=== PATIENT | male | born 1980 | race American Indian/Alaskan Native ===

== ENCOUNTER 2017-07-08 04:22 | Emergency (ER) | payer SELFPAY | END 2017-07-08 05:30 | disposition left against medical advice (07) | LOC: ED 04:22 | DX: Z04.1 Encounter for examination and observation following transport accident (principal); Z53.21 Procedure and treatment not carried out due to patient leaving prior to being seen by health care provider; V89.2XXA Person injured in unspecified motor-vehicle accident, traffic, initial encounter; Y93.89 Activity, other specified; Y99.8 Other external cause status; Y92.410 Unspecified street and highway as the place of occurrence of the external cause ==

== ENCOUNTER 2017-11-12 13:33 | Emergency (ER) | payer SELFPAY ==
[2017-11-12] MEDS ORDERED: MOTRIN PO ONE (19:42)
--- NOTE | 2017-11-12 19:46 | Emergency Department Report ---
ED ENT HPI - General Chief complaint: Earache Stated complaint: EAR ACHE Time Seen by Provider: 11/12/17 19:41 Source: patient Mode of arrival: Ambulatory Limitations: No Limitations - History of Present Illness Initial comments: 37-year-old -Citizen Of [place] male presents to the emergency room for right ear pain and feels like is full of fluid. Patient states he did the Candle wax in these ear wax removal. States that the pain has been going on for 3 days. Patient has not taken any [id number] pain medications such as Tylenol, Advil or Aleve. Patient reports no known drug allergies currently takes no medications on a daily basis and has no past medical history. MD complaint: ear pain -: days(s) (3) Location: R ear Severity: severe Quality: stabbing, sharp Consistency: constant Improves with: none Worsens with: swallowing, eating, movement - Related Data Previous Rx's Medication Instructions Recorded Last Taken Type Ibuprofen [Motrin 600 MG tab] 600 mg PO Q8H #30 tablet 11/12/17 Unknown Rx Allergies Allergy/AdvReac Type Severity Reaction Status Date / Time No Known Allergies Allergy Unverified 11/12/17 14:07 ED Dental HPI - General Chief complaint: Earache Stated complaint: EAR ACHE Time Seen by Provider: 11/12/17 19:41 Source: patient Mode of arrival: Ambulatory Limitations: No Limitations - Related Data Previous Rx's Medication Instructions Recorded Last Taken Type Ibuprofen [Motrin 600 MG tab] 600 mg PO Q8H #30 tablet 11/12/17 Unknown Rx Allergies Allergy/AdvReac Type Severity Reaction Status Date / Time No Known Allergies Allergy Unverified 11/12/17 14:07 ED Review of Systems ROS: Stated complaint: EAR ACHE Other details as noted in HPI Comment: All other systems reviewed and negative Constitutional: denies: chills, fever ENT: ear pain ED Past Medical Hx - Past Medical History Previous Medical History?: No - Surgical History Past Surgical History?: No - Social History Smoking Status: Current Every Day Smoker Substance Use Type: Alcohol, Cocaine - Medications Home Medications: Home Medications Medication Instructions Recorded Confirmed Last Taken Type Ibuprofen [Motrin 600 MG tab] 600 mg PO Q8H #30 tablet 11/12/17 Unknown Rx ED Physical Exam - General Limitations: No Limitations General appearance: alert, in no apparent distress - Head Head exam: Present: atraumatic, normocephalic - Eye Eye exam: Present: EOMI - ENT ENT exam: Present: mucous membranes moist - Expanded ENT Exam Expanded TM/Canal exam: Erythema: Right TM, Canal Discharge: Right TM, Canal Tenderness: Right TM (right ear canal is erythematous, edematous with tragus tenderness) - Respiratory Respiratory exam: Present: normal lung sounds bilaterally. Absent: respiratory distress - Cardiovascular Cardiovascular Exam: Present: regular rate, normal rhythm. Absent: systolic murmur, diastolic murmur, rubs, gallop - Neurological Exam Neurological exam: Present: alert, oriented X3 - Psychiatric Psychiatric exam: Present: normal affect, normal mood - Skin Skin exam: Present: warm, dry, intact, normal color. Absent: rash ED Course Vital Signs 11/12/17 14:01 Temperature 98.7 F Pulse Rate 66 Respiratory 18 Rate Blood Pressure 129/88 O2 Sat by Pulse 99 Oximetry ED Medical Decision Making - Medical Decision Making Patient has been evaluated by this provider fast track. Ibuprofen 600 mg given for pain management Order polymycin ear drops and will place an ear wick. We'll discharge patient with polymycin ear drops and ear wick to be removed in 4 days. Discussed the patient is symptoms persist or gets worse to follow-up with ear nose and throat doctor. He verbalized understanding. Critical care attestation.: If time is entered above; I have spent that time in minutes in the direct care of this critically ill patient, excluding procedure time. ED Disposition Clinical Impression: Right otitis externa Qualifiers: Otitis externa type: diffuse Chronicity: acute Qualified Code(s): H60.311 - Diffuse otitis externa, right ear Disposition: TO HOME OR SELFCARE Is pt being admited?: No Does the pt Need Aspirin: No Condition: Stable Instructions: Otitis Externa (ED) Additional Instructions: Please use eardrops for to right ear daily for 7 days. Follow-up with her ear nose and throat provider or primary care provider I have listed their information below. Prescriptions: Ibuprofen [Motrin 600 MG tab] 600 mg PO Q8H #30 tablet Referrals: PRIMARY MD DAMASO [Primary Care Provider] - 3-5 Days ZOIE TERRELL MD [Staff Physician] - 3-5 Days [facility] [Provider Group] - 3-5 Days Forms: Work/School Release Form(ED)
[2017-11-12] MEDS ORDERED: CORTISPORIN AU ONE (20:30)
[2017-11-12 20:59] VITALS: BP 124/80
[2017-11-12] MEDS ORDERED: CIPRODEX AD SCH (22:00)
== END 2017-11-12 20:59 | disposition home or self-care (01) ==
LOC: ED 13:33
DX: H60.91 Unspecified otitis externa, right ear (principal); F17.200 Nicotine dependence, unspecified, uncomplicated; F14.10 Cocaine abuse, uncomplicated
CPT/HCPCS: 99282